=== PATIENT | female | born 1985 | race Caucasian/White ===

== ENCOUNTER → 2017-07-21 | Outpatient (CLI) | payer OTHER ==
[~2017-07-21] MED LIST: ALBU1AER9 INH; ATV/1 PO; BIOTCAP2 PO; COLL500C PO; CRAN1CAP15 PO; CYAN10002 IM; CYAN100020 PO; CYCL10TA7 PO; DICY10CA55 PO; ESCI1TAB10 PO; GABA-113 PO; MELA1TAB5 PO; MONT1TAB3 PO; MULT-506 PO; MULT-580 PO; NALT1TAB14 PO; PANT40TA PO; PRENTAB44 PO; PROP40TA5 PO; RIZA10TA18 PO; RXC5 PO; TRAM-10 PO; VITA10004 PO; VTMD1000 PO
[2017-07-21 13:39] LABS: ALKALINE PHOSPHATASE 188 U/L (45-117); ALT/SGPT 19 U/L (12-78); AST/SGOT 13 U/L (15-37); BLOOD UREA NITROGEN 14 mg/dl (7-18); BUN/CREATININE RATIO 16.8 (10-20); CALCIUM 9.6 mg/dl (8.5-10.1); CARBON DIOXIDE 29 mmol/L (21-32); CHLORIDE 100 mmol/L (98-107); CREATININE 0.81 mg/dl (0.60-1.20); GLUCOSE 95 mg/dl (70-99); POTASSIUM 4.1 mmol/L (3.5-5.1); SODIUM 138 mmol/L (136-145)
== END | disposition home or self-care (01) ==
LOC: C.LABMFLN 08:34
PROVIDERS: ATTEND Family Medicine
DX: R60.9 Edema, unspecified (principal); E03.9 Hypothyroidism, unspecified